=== PATIENT | male | born 1980 | race Caucasian/White ===

== ENCOUNTER → 2016-11-05 | Outpatient (CLI) | payer OTHER ==
[~2016-11-05] MED LIST: GADOBUTROL 10 ML VIAL IVP ONE
== END ==
LOC: FIMAGING 18:44
PROVIDERS: ATTEND Internal Medicine Hematology & Oncology
DX: Z85.72 Personal history of non-Hodgkin lymphomas (principal); Z98.890 Other specified postprocedural states
CPT/HCPCS: A9585